=== PATIENT | female | born 1940 | race Caucasian/White ===

== ENCOUNTER 2017-02-20 21:57 | Emergency (ER) | payer MEDICARE ==
--- NOTE | ~2017-02-20 | CT4 ---
[facility] A Service of [facility] RADIOLOGY TEXT RESULTS PATIENT: ELVIA BUNDY LOCATION: SED : 40 UNIT #: [id number] AGE: [address]: Iam Pak MD SEX: F ORDER DR: [id number] [place] [id number] E MR#: [id number] Acc #: [id number] NAME: ELVIA BUNDY : 1940 SEX: F STUDY DATE/TIME: 02/20/2017 23:07 UNIT: SED ROOM: STUDY DESCRIPTION: CT Abd and Pelv Wo Cont Attending Physician: Iam Pak M.D. Ordering Physician: Iam Pak M.D. Primary Care Physician: Jose Meadows M.D. MEDICAL IMAGING REPORT This report is preliminary unless electronic signature is present. EXAM CT abdomen and pelvis, noncontrast, 02/20/2017 HISTORY 76-year-old female in the ED complaining of new onset abdomen pain, diarrhea and vomiting beginning earlier this morning. TECHNIQUE CT examination of the abdomen and pelvis was performed without IV contrast. GI contrast material was administered. This CT exam was performed with one or more of the following radiation dose reduction techniques: automatic exposure control, adjustment of mA and/or kV according to patient size, and iterative reconstruction. COMPARISON CT abdomen/pelvis, 02/25/2009 FINDINGS ABDOMEN: The examination shows moderate dilatation of fluid-filled mid and distal small bowel throughout the lower abdomen and pelvis to the level of the distal ileum in the right side of the pelvis. The terminal ileum and colon are decompressed. There is fecalization of small bowel content within dilated pelvic loops. The findings suggest at least partial mechanical small bowel obstruction at the right mid pelvis level. The exact site or etiology of presumed obstruction is not clearly demonstrated, but small bowel adhesion should be considered. The patient has had cholecystectomy and hysterectomy surgery. The appendix is normal. Liver, pancreas and spleen are normal in size and appearance. No bile duct dilatation. Right upper renal cyst unchanged. No evidence of urinary obstruction. Normal-caliber abdominal aorta. [facility] A Service of [facility] RADIOLOGY TEXT RESULTS PATIENT: ELVIA BUNDY LOCATION: ONEIL : 40 UNIT #: [id number] AGE: [address]: Iam Pak MD SEX: F ORDER DR: PELVIS FINDINGS: Bladder and rectum are negative. Hysterectomy. No inguinal hernia or abdominal wall hernia. Limited lower chest images show a small hiatal hernia with gastroesophageal reflux of gastric contrast. IMPRESSION 1. CT findings concerning for small bowel obstruction, likely at the distal ileal level in the right mid pelvis. The exact site or cause for obstruction is not demonstrated, but small bowel adhesion should be considered. The terminal ileum and colon are decompressed. 2. The appendix is normal. No evidence of abscess, bowel perforation or additional GI tract abnormality. 3. Cholecystectomy and hysterectomy. 4. Small hiatal hernia with gastroesophageal reflux. Dictated by... Constantin Frank M.D. THIS IS AN ELECTRONICALLY VERIFIED REPORT Constantin Frank M.D. at 02/21/2017 5:58 AM [place] TD: 02/21/2017 00:13 JOB #: [id number] MEDICAL IMAGING REPORT Page 1 of 1
[2017-02-20 21:48] LABS: BASOPHIL% 0.4 % (0-2.5); HEMATOCRIT 40.6 % (35.0-45.0); HEMOGLOBIN 13.9 gm/dL (12.0-16.0); LYMPHOCYTE# 0.6 X10e3 (1.0-3.5); MEAN CELL VOLUME 89.7 FL (83-96); MEAN CORPUSCULAR HEMOGLOBIN 30.6 PG (28-34); MEAN CORPUSCULAR HGB CONC 34.1 g/dL (30-36); MEAN PLATELET VOLUME 8.5 FL (6.5-11.5); MONOCYTE# 0.3 X10e3 (0-1.0); MONOCYTE% 3.4 % (3.0-12.0); NEUTROPHIL# 7.9 X10e3 (1.5-7.1); NEUTROPHIL% 89.2 % (40-75); PLATELET COUNT 242 X10e3 (140-420); RED BLOOD COUNT 4.53 X10e (3.90-5.30); RED CELL DISTRIBUTION WIDTH 13.4 % (11.0-15.5); WHITE BLOOD COUNT 8.8 X10e3 (4.0-10.5)
[2017-02-20 21:50] LABS: DIFF IND NO
[2017-02-20 22:08] LABS: PARTIAL THROMBOPLASTIN TIME 23.4 SECONDS (25.6-38.1)
[2017-02-20 22:11] LABS: ALBUMIN SERUM 4.2 g/dL (3.5-5.0); BILIRUBIN, DIRECT 0.2 mg/dL (0.0-0.2); BILIRUBIN,INDIRECT 0.5 mg/dL (0.0-0.9); BILIRUBIN,TOTAL 0.7 mg/dL (0.2-2.0); BUN/CREATININE RATIO 19.09; CALCIUM SERUM 9.4 mg/dL (8.4-10.2); CREATININE SERUM 1.1 mg/dL (0.6-1.4); GLOM FILT RATE Estimated 48.7 mL/min (>60); POTASSIUM 4.4 mmol/L (3.5-5.1); PROTEIN TOTAL SERUM 7.1 g/dL (6.0-8.3)
== END 2017-02-21 02:42 ==
LOC: SED 21:57
PROVIDERS: Emergency Medicine
DX: K56.60 Unspecified intestinal obstruction (principal); I25.10 Atherosclerotic heart disease of native coronary artery without angina pectoris; E78.5 Hyperlipidemia, unspecified; Z90.49 Acquired absence of other specified parts of digestive tract
CPT/HCPCS: 36415; 74176; 80048; 80076; 82150; 83690; 85025; 85610; 85730; 96361; 96365; 96374; 96375; 96376; 99285; J1170; J2270; J2405